=== PATIENT | female | born 2000 | race Caucasian/White ===

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

== ENCOUNTER 2024-10-24 10:46 | Inpatient (IN) ==
[2024-10-24] MEDS: LACTATED RINGER'S 1,000 ML IV PRN ×2 (13:40→19:53)
[2024-10-24] MEDS: ACETAMINOPHEN 325 MG TAB PO PRN (13:49)
--- NOTE | 2024-10-24 14:36 | History & Physical Report ---
Date of Service October 24, 2024 Assessment & Plan (1) Uterine contractions during : Plan: Monitor the patient on L&D Check for any cervical change. History of Present Illness Chief Complaint: Intrauterine 40 weeks 1 day gestation Painful contractions. Primary Care Provider: NO PCP Patient is a 24-year-old 1 para 0 her general health is good. Has been followed in the office for care and delivery. has been well dated with a first trimester ultrasound. Her due date is 10/23/2024. She started having contractions 11 PM on 10/23/2024 they continued throughout the night she had was unable to sleep she called the answering service about 9 AM today and stated she was having regular contractions was told to come into the office for evaluation once she got to the hospital she was placed on the monitor monitor strip was excellent heart rate had good tmbd-pn-soea variability there was spontaneous accelerations. Contractions were somewhat sporadic sometimes spaced as much is 4 to 5 minutes. However when she did get 1 she was rating them at about a 7 or 8 on a pain scale. Pelvic exam on admission revealed cervix to be 4 cm 100% effaced posterior vertex presentation at about a -120 station. Allergies Allergy/AdvReac Type Severity Reaction Status Date / Time No Known Allergies Allergy Verified 11/12/19 10:12 Home Medications Medication Instructions Recorded Confirmed Type vit #[id number]-GI-dha 1 tab PO DAILY 07/01/24 10/24/24 History Past Med/Surg History Problem List (Updated 10/24/24 @ 14:36 by Geoffrey Conley MD) Uterine contractions during Pain of round ligament affecting , antepartum Bilateral groin pain Encounter for pre-operative examination No known health problems Medical History Allergic rhinitis Anxiety Surgical History H/O knee surgery Social History Smoking Status: Never smoker Second Hand Exposure: No; Do You Dip or Chew Tobacco: No; Hx Alcohol Use: No Hx Substance Use: No Preferred Language: Moldovan Communication Ability: Effective Lokie Driver Required: No Beliefs That Will Affect Care: None marital status: Single Current Living Situation: Significant Other Other Information That Helps Us Care for You: No Feels Safe at Home: Yes Safety Concerns: Feels Safe At This Time Assistive Devices: None Physical Exam Physical Exam: Patient dane appeared to be well-developed well well-nourished 24-year-old white female alert oriented x 3 cooperative in a moderate amount of distress. Heart had a regular rhythm S1 and S2 are normal. Lungs are clear to auscultation and percussion trachea was midline there was no cervical adenopathy. There was no CVA tenderness. There was no abdominal tenderness. Nominal size was consistent with a term size fetus. There was no calf tenderness. Pelvic exam revealed the cervix to be 4 cm posterior 100% effaced vertex presentation at about a 0 to -1 station. Results & Data Results & Data Vital Signs (Past 12 Hours) Vital Signs Temp Pulse Resp BP 10/24/24 13:45 18 10/24/24 13:45 18 10/24/24 13:15 18 10/24/24 13:15 18 10/24/24 12:45 18 10/24/24 12:45 18 10/24/24 11:23 18 10/24/24 11:23 18 10/24/24 11:12 36.8 C 20 10/24/24 11:02 75 119/68 Diagnostic Findings Reactive NST
[2024-10-24] MEDS ORDERED: ACETAMINOPHEN 325 MG TAB PO PRN (17:46)
[2024-10-24] MEDS ORDERED: LIDOCAINE 1% LOCAL 20 ML VIAL INFIL PRN (18:41)
--- NOTE | 2024-10-24 18:44 | Labor Progress Brief Note ---
Date of Service October 24, 2024 Physical Exam Genitourinary: Manual OB Exam: + cervical dilation 4 cm and 5 cm, + cervical effacement 90% and + station -2 OB Exam Monitor Tracing: + external FHT monitor used, + external uterine monitor used, + category I and + normal FHT variability will admit in labor and fluid load for epidural Results & Data Vital Signs (Past 12 Hours) Vital Signs Temp Pulse Resp BP Pulse Ox 10/24/24 18:40 81 97 10/24/24 18:35 76 97 10/24/24 17:45 18 10/24/24 17:45 18 10/24/24 16:32 36.9 C 10/24/24 16:00 71 119/56 L 10/24/24 15:06 18 10/24/24 15:06 18 10/24/24 14:45 16 10/24/24 14:45 16 10/24/24 13:45 18 10/24/24 13:45 18 10/24/24 13:15 18 10/24/24 13:15 18 10/24/24 12:45 18 10/24/24 12:45 18 10/24/24 11:23 18 10/24/24 11:23 18 10/24/24 11:12 36.8 C 20 10/24/24 11:02 75 119/68
[2024-10-24 19:17] LABS: Hematocrit (blood only) 33.4 % (37.0-47.0); Hemoglobin 11.1 g/dl (12.0-16.0); Mean Corpuscular Hemoglobin 29.8 pg (25.0-34.0); Mean Corpuscular Hgb Conc 33.2 g/dL (32.0-36.0); Mean Corpuscular Volume 89.5 fL (80.0-100.0); Mean Platelet Volume 9.7 fL (9.4-12.4); Platelet Count 176 K/uL (130-400); RDW Coefficient of Variation 13.8 % (11.5-14.5); Red Blood Count 3.73 M/uL (4.20-5.40)
[2024-10-24] MEDS: fentANYL 2 MCG/ML BUPIVacaine 0.125%-NSS 100ML BAG ONE (20:25)
[2024-10-24] MEDS: fentaNYL citrate PF 100 MCG/2 ML VIAL ONE (20:27)
[2024-10-24] MEDS: SODIUM CHLORIDE 0.9% PF INJ 10 ML VIAL ONE (20:27)
[2024-10-24] MEDS: BUPIVACAINE 0.25% PF 30 ML VIAL ONE (20:27)
[2024-10-24] MEDS: ePHEDrine sulfate 50 MG/ML AMP ONE (20:28)
[2024-10-24] MEDS: LIDOCAINE 2%/EPINEPHRINE 1:200,000 20 ML PF ONE (20:28)
--- NOTE | 2024-10-24 20:43 | Anesthesiology Consultation ---
Date of Service October 24, 2024 Assessment & Plan Chart Review Chart Review: Acceptable Risk for Labor Epidural Consults Requested none History Height/Weight Height: 5 ft 3 in Weight: 69.853 kg Allergies Allergy/AdvReac Type Severity Reaction Status Date / Time No Known Allergies Allergy Verified 11/12/19 10:12 Medications Home Medications Medication Instructions Recorded Confirmed Last Taken vit #29-[id number]-JU-dha 1 tab PO DAILY 07/01/24 10/24/24 10/23/24 Active Medications Generic Name Dose Route Start Last Admin Trade Name Freq PRN Reason Stop Dose Admin Lactated Ringer's 1,000 mls @ 125 mls/hr 10/24/24 13:37 10/24/24 18:37 Lr IV 10/27/24 13:36 999 mls/hr .Q8H PRN Administration L&D Protocol Protocol Lactated Ringer's 1,000 mls @ 125 mls/hr 10/24/24 18:41 10/24/24 19:53 Lr IV 10/26/24 18:40 125 mls/hr .Q8H PRN Administration L&D Protocol Protocol Past Medical History Medical History Allergic rhinitis Anxiety Past Surgical History Surgical History H/O knee surgery Social History Smoking Status: Never smoker Do You Dip or Chew Tobacco: No Hx Alcohol Use: No Hx Substance Use: No substance use type: does not use Physical Exam Vital Signs Last Vital Signs Temp 36.7 C 10/24/24 19:09 Pulse 75 10/24/24 20:41 Resp 18 10/24/24 18:45 BP 97/55 L 10/24/24 20:41 Pulse Ox 97 10/24/24 20:37 Testing Laboratory Results 10/24/24 19:03
[2024-10-24] MEDS ORDERED: NALOXONE HCL 1 MG in SODIUM CHLORIDE 0.9% 1,000 ML IV PRN (20:44)
[2024-10-24] MEDS ORDERED: BUPIVACAINE 0.25% PF 30 ML VIAL EPI PRN (20:44)
[2024-10-24] MEDS ORDERED: LIDOCAINE 2% MPF LOCAL 5 ML VIAL EPI PRN (20:44)
[2024-10-24] MEDS ORDERED: ROPIVACAINE 0.5% PF 5 MG/ML 20 ML VIAL EPI PRN (20:44)
[2024-10-24] MEDS ORDERED: NALBUPHINE HCL INJ 10 MG/ML AMP IV PRN (20:44)
[2024-10-24] MEDS ORDERED: NALOXONE HCL 0.4 MG/1 ML VIAL/CARP IV PRN (20:44)
[2024-10-24] MEDS ORDERED: SODIUM CHLORIDE 0.9% PF INJ 10 ML VIAL EPI PRN (20:44)
[2024-10-24] MEDS ORDERED: diphenhydrAMINE 50 MG/ML VIAL IV PRN (20:44)
[2024-10-24] MEDS: ePHEDrine sulfate 50 MG/ML AMP IV PRN (21:40)
--- NOTE | 2024-10-24 22:07 | Labor Progress Brief Note ---
Date of Service October 24, 2024 Assessment & Plan Admission and Anticipated Discharge Date Admission Date: October 24, 2024 Physical Exam Genitourinary: Manual OB Exam: + cervical dilation 6 cm, + cervical effacement 90%, + station (AROM with Amni-hook clear fluid) -1 and + amniotic fluid clear OB Exam Monitor Tracing: + external FHT monitor used, + external uterine monitor used, + category I and + normal FHT variability Results & Data Vital Signs (Past 12 Hours) Vital Signs Temp Pulse Resp BP Pulse Ox 10/24/24 22:04 64 113/54 L 10/24/24 22:02 81 97/54 L 97 10/24/24 22:00 63 99/57 L 10/24/24 21:58 65 103/56 L 10/24/24 21:57 65 97 10/24/24 21:56 65 99/56 L 10/24/24 21:54 63 100/55 L 10/24/24 21:52 66 104/57 L 97 10/24/24 21:50 66 105/56 L 10/24/24 21:48 65 103/56 L 10/24/24 21:47 67 97 10/24/24 21:46 67 100/58 L 10/24/24 21:44 57 L 108/61 10/24/24 21:42 95 10/24/24 21:42 78 10/24/24 21:42 62 97/54 L 10/24/24 21:37 69 96 10/24/24 21:36 73 92/50 L 10/24/24 21:32 68 95 10/24/24 21:27 66 97 10/24/24 21:22 60 96 10/24/24 21:18 59 L 116/52 L 10/24/24 21:17 73 96 10/24/24 21:12 69 95 10/24/24 21:11 83 108/69 10/24/24 21:07 73 95 10/24/24 21:06 72 109/61 10/24/24 21:02 81 97 10/24/24 21:01 71 107/61 10/24/24 20:57 71 96 10/24/24 20:55 71 99/58 L 10/24/24 20:54 74 81 L 10/24/24 20:53 73 96/55 L 10/24/24 20:52 60 97 10/24/24 20:51 68 99/57 L 10/24/24 20:49 74 98/52 L 10/24/24 20:47 96 10/24/24 20:47 69 10/24/24 20:47 73 107/57 L 10/24/24 20:45 67 101/57 L 10/24/24 20:43 67 99/53 L 10/24/24 20:42 70 96 10/24/24 20:41 75 97/55 L 10/24/24 20:39 69 102/55 L 10/24/24 20:37 72 113/58 L 97 10/24/24 20:35 62 108/58 L 10/24/24 20:33 69 108/58 L 10/24/24 20:32 73 97 10/24/24 20:31 67 107/58 L 10/24/24 20:29 76 108/59 L 10/24/24 20:27 87 102/57 L 96 10/24/24 20:25 80 108/61 10/24/24 20:23 76 106/62 10/24/24 20:22 75 96 10/24/24 20:21 72 111/63 10/24/24 20:19 68 113/61 10/24/24 20:17 71 113/65 96 10/24/24 20:15 86 111/63 10/24/24 20:13 69 112/64 10/24/24 20:12 78 95 10/24/24 20:11 76 120/77 10/24/24 20:10 86 129/75 10/24/24 20:08 92 H 86 L 10/24/24 20:07 86 94 10/24/24 20:04 87 124/75 10/24/24 20:02 90 95 10/24/24 19:58 79 108/66 10/24/24 19:57 73 96 10/24/24 19:52 70 94 10/24/24 19:49 78 94 10/24/24 19:47 75 97 10/24/24 19:42 72 96 10/24/24 19:39 74 99/69 L 10/24/24 19:37 79 96 10/24/24 19:32 75 97 10/24/24 19:20 73 98 10/24/24 19:17 73 93 10/24/24 19:15 79 98 10/24/24 19:10 76 98 10/24/24 19:09 36.7 C 75 112/69 10/24/24 19:05 74 97 10/24/24 19:00 72 98 10/24/24 18:55 74 97 10/24/24 18:50 73 97 10/24/24 18:45 74 18 98 10/24/24 18:40 81 97 10/24/24 18:35 76 97 10/24/24 18:15 22 10/24/24 18:15 22 10/24/24 17:45 18 10/24/24 17:45 18 10/24/24 16:32 36.9 C 10/24/24 16:00 71 119/56 L 10/24/24 15:06 18 10/24/24 15:06 18 10/24/24 14:45 16 10/24/24 14:45 16 10/24/24 13:45 18 10/24/24 13:45 18 10/24/24 13:15 18 10/24/24 13:15 18 10/24/24 12:45 18 10/24/24 12:45 18 10/24/24 11:23 18 10/24/24 11:23 18 10/24/24 11:12 36.8 C 20 10/24/24 11:02 75 119/68
--- NOTE | 2024-10-25 02:03 | Labor Progress Brief Note ---
Date of Service October 25, 2024 Assessment & Plan Admission and Anticipated Discharge Date Admission Date: October 24, 2024 Physical Exam Genitourinary: Manual OB Exam: + cervical dilation 9 cm and 10 cm, + cervical effacement 100%, + station 0 and + amniotic fluid clear OB Exam Monitor Tracing: + external FHT monitor used, + external uterine monitor used, + category I and + normal FHT variability Results & Data Vital Signs (Past 12 Hours) Vital Signs Temp Pulse Resp BP Pulse Ox 10/25/24 01:59 77 104/57 L 10/25/24 01:57 74 96 10/25/24 01:52 73 97 10/25/24 01:47 113 H 96 10/25/24 01:43 93 H 102/60 10/25/24 01:42 77 96 10/25/24 01:37 76 96 10/25/24 01:32 87 95 10/25/24 01:29 107 H 104/55 L 10/25/24 01:27 81 96 10/25/24 01:22 82 93 10/25/24 01:17 91 H 97 10/25/24 01:14 75 99/53 L 10/25/24 01:12 88 98 10/25/24 01:07 82 95 10/25/24 01:02 77 96 10/25/24 00:57 85 100/59 L 96 10/25/24 00:52 71 96 10/25/24 00:47 68 96 10/25/24 00:44 65 98/51 L 10/25/24 00:42 69 96 10/25/24 00:37 73 95 10/25/24 00:32 71 94 10/25/24 00:29 64 97/53 L 10/25/24 00:27 63 95 10/25/24 00:22 67 96 10/25/24 00:17 77 96 10/25/24 00:14 64 101/53 L 10/25/24 00:12 68 96 10/25/24 00:07 64 96 10/25/24 00:05 36.7 C 10/25/24 00:02 70 98 10/24/24 23:57 72 109/55 L 96 10/24/24 23:52 71 96 10/24/24 23:47 77 96 10/24/24 23:43 73 104/55 L 10/24/24 23:42 67 96 10/24/24 23:37 71 96 10/24/24 23:32 72 95 10/24/24 23:28 70 109/56 L 10/24/24 23:27 69 95 10/24/24 23:22 69 95 10/24/24 23:17 69 94 10/24/24 23:13 65 107/55 L 10/24/24 23:12 64 95 10/24/24 23:07 64 94 10/24/24 23:02 66 96 10/24/24 22:58 64 105/56 L 10/24/24 22:57 64 96 10/24/24 22:52 68 95 10/24/24 22:47 67 97 10/24/24 22:43 80 102/59 L 10/24/24 22:42 72 96 10/24/24 22:37 67 95 10/24/24 22:32 70 97 10/24/24 22:30 64 104/59 L 10/24/24 22:27 72 97 10/24/24 22:22 66 97 10/24/24 22:17 70 97 10/24/24 22:12 97 10/24/24 22:12 69 10/24/24 22:12 71 105/57 L 10/24/24 22:10 71 98/58 L 10/24/24 22:08 72 101/56 L 10/24/24 22:07 69 96 10/24/24 22:06 79 102/54 L 87 L 10/24/24 22:04 64 113/54 L 10/24/24 22:02 81 97/54 L 97 10/24/24 22:00 63 99/57 L 10/24/24 21:58 65 103/56 L 10/24/24 21:57 65 97 10/24/24 21:56 65 99/56 L 10/24/24 21:54 63 100/55 L 10/24/24 21:52 66 104/57 L 97 10/24/24 21:50 66 105/56 L 10/24/24 21:48 65 103/56 L 10/24/24 21:47 67 97 10/24/24 21:46 67 100/58 L 10/24/24 21:44 57 L 108/61 10/24/24 21:42 95 10/24/24 21:42 78 10/24/24 21:42 62 97/54 L 10/24/24 21:37 69 96 10/24/24 21:36 73 92/50 L 10/24/24 21:32 68 95 10/24/24 21:27 66 97 10/24/24 21:22 60 96 10/24/24 21:18 59 L 116/52 L 10/24/24 21:17 73 96 10/24/24 21:12 69 95 10/24/24 21:11 83 108/69 10/24/24 21:07 73 95 10/24/24 21:06 72 109/61 10/24/24 21:02 81 97 10/24/24 21:01 71 107/61 10/24/24 20:57 71 96 10/24/24 20:55 71 99/58 L 10/24/24 20:54 74 81 L 10/24/24 20:53 73 96/55 L 10/24/24 20:52 60 97 10/24/24 20:51 68 99/57 L 10/24/24 20:49 74 98/52 L 10/24/24 20:47 96 10/24/24 20:47 69 10/24/24 20:47 73 107/57 L 10/24/24 20:45 67 101/57 L 10/24/24 20:43 67 99/53 L 10/24/24 20:42 70 96 10/24/24 20:41 75 97/55 L 10/24/24 20:39 69 102/55 L 10/24/24 20:37 72 113/58 L 97 10/24/24 20:35 62 108/58 L 10/24/24 20:33 69 108/58 L 10/24/24 20:32 73 97 10/24/24 20:31 67 107/58 L 10/24/24 20:29 76 108/59 L 10/24/24 20:27 87 102/57 L 96 10/24/24 20:25 80 108/61 10/24/24 20:23 76 106/62 10/24/24 20:22 75 96 10/24/24 20:21 72 111/63 10/24/24 20:19 68 113/61 10/24/24 20:17 71 113/65 96 10/24/24 20:15 86 111/63 10/24/24 20:13 69 112/64 10/24/24 20:12 78 95 10/24/24 20:11 76 120/77 10/24/24 20:10 86 129/75 10/24/24 20:08 92 H 86 L 10/24/24 20:07 86 94 10/24/24 20:04 87 124/75 10/24/24 20:02 90 95 10/24/24 19:58 79 108/66 10/24/24 19:57 73 96 10/24/24 19:52 70 94 10/24/24 19:49 78 94 10/24/24 19:47 75 97 10/24/24 19:42 72 96 10/24/24 19:39 74 99/69 L 10/24/24 19:37 79 96 10/24/24 19:32 75 97 10/24/24 19:20 73 98 10/24/24 19:17 73 93 10/24/24 19:15 79 98 10/24/24 19:10 76 98 10/24/24 19:09 36.7 C 75 112/69 10/24/24 19:05 74 97 10/24/24 19:00 72 98 10/24/24 18:55 74 97 10/24/24 18:50 73 97 10/24/24 18:45 74 18 98 10/24/24 18:40 81 97 10/24/24 18:35 76 97 10/24/24 18:15 22 10/24/24 18:15 22 10/24/24 17:45 18 10/24/24 17:45 18 10/24/24 16:32 36.9 C 10/24/24 16:00 71 119/56 L 10/24/24 15:06 18 10/24/24 15:06 18 10/24/24 14:45 16 10/24/24 14:45 16
[2024-10-25] MEDS: ONDANSETRON INJ 2 MG/ML 2 ML VIAL IV PRN (02:29)
[2024-10-25] MEDS: fentANYL 2 MCG/ML BUPIVacaine 0.125%-NSS 100ML BAG EPI PRN (04:30)
[2024-10-25] MEDS: fentaNYL citrate PF 100 MCG/2 ML VIAL EPI PRN (05:25)
--- NOTE | 2024-10-25 05:27 | Anesthesia Procedure Note ---
Date of Service October 25, 2024 Anesthesia Epidural Re-Dose Vital Signs Temp Pulse Resp BP Pulse Ox 36.8 C 85 18 107/58 L 97 10/25/24 03:52 10/25/24 05:25 10/24/24 18:45 10/25/24 05:10/25/24 05:22 Notes Pain Intensity: 4 Dilatation (cm): 9.5 Effacement (%): 100 Called by nursing to evaluate epidural as the patient is having increased pain. The epidural was re-dosed with the following medications (all medications via epidural route) after negative aspiration of the epidural catheter for CSF/HEME. 2% lidocaine 5ml with fentanyl 100mcg. After Epidural Re-Dose Mental Status: alert / awake / arousable Pain: improving with treatment Airway Patency, RR, SpO2: stable & adequate BP & HR: stable & adequate
[2024-10-25] MEDS: OXYTOCIN 30 UNITS/NSS 30 UNITS/500 ML BAG IV PRN (07:45)
[2024-10-25] MEDS ORDERED: ACETAMINOPHEN 325 MG TAB PO PRN (08:24)
[2024-10-25] MEDS ORDERED: OXYTOCIN 30 UNITS/NSS 30 UNITS/500 ML BAG IV PRN (08:24)
[2024-10-25] MEDS ORDERED: HYDROCORTISONE ACETATE 25 MG SUPP PR PRN (08:24)
[2024-10-25] MEDS ORDERED: bisacodyL 10 MG SUPP PR PRN (08:24)
--- NOTE | 2024-10-25 08:30 | Delivery Summary ---
Vaginal Delivery Summary Date of Service October 25, 2024 Vaginal Delivery Summary live female SIERRA over intact perineum with delayed cord clamping. Apgars 8/9 weight 8 lbs. 13 oz. Placenta delivered spontaneously and intact. Several small vaginal bleeders in vagina along with an arterial pumper on right side wall were repaired with 3/0 Vicryl suture. QBL 1237 ml. Final sponge, needle and instrument count are correct. Mo and baby stable.
[2024-10-25] MEDS: BUPIVACAINE 0.25% PF 30 ML VIAL EPI STA (08:50)
[2024-10-25] MEDS: SODIUM CHLORIDE 0.9% PF INJ 10 ML VIAL EPI STA (08:51)
[2024-10-25] MEDS: DIPHTHER/TETAN/PERTUS Vaccine (Tdap, Adol/Adult) 0.5mL IM ONE (08:51)
[2024-10-25] MEDS: LIDOCAINE 2%/EPINEPHRINE 1:200,000 20 ML PF EPI STA (08:51)
[2024-10-25] MEDS: fentaNYL citrate PF 100 MCG/2 ML VIAL EPI STA (08:51)
[2024-10-25] MEDS: IBUPROFEN 600 MG TAB PO PRN (09:14)
--- NOTE | 2024-10-25 10:14 | Anesthesia Procedure Note ---
Date of Service October 25, 2024 Anesthesia Post Epidural Note Vital Signs Vital Signs: Temp Pulse Resp BP Pulse Ox 37.0 C 82 18 102/58 L 95 10/25/24 07:01 10/25/24 10:12 10/25/24 09:43 10/25/24 10:12 10/25/24 07:57 Pain Intensity Abdomen: Pain Intensity: 4 Notes Mental Status: alert / awake / arousable and participated in evaluation Nausea / Vomiting: adequately controlled Pain: adequately controlled Airway Patency, RR, SpO2: stable & adequate BP & HR: stable & adequate Hydration State: stable & adequate Neuraxial Anesthesia: was administered and sensory block resolved Anesthetic Complications: no major complications apparent and Pt Satisfied with anesthetic care Epidural: Removed without complications and With tip intact
[2024-10-25] MEDS: LACTATED RINGER'S 1,000 ML IV ONE (10:36)
[2024-10-25] MEDS: BENZOCAINE 20% SPRY 85 APPLN/85 GM CAN EXT PRN (13:40)
[2024-10-25 14:27] LABS: Hemoglobin 8.5 g/dl (12.0-16.0); Mean Corpuscular Hemoglobin 30.7 pg (25.0-34.0); Mean Corpuscular Volume 90.3 fL (80.0-100.0); Mean Platelet Volume 9.7 fL (9.4-12.4); Platelet Count 156 K/uL (130-400); RDW Coefficient of Variation 13.8 % (11.5-14.5); RDW Standard Deviation 45.5 fL (36.4-46.3); Red Blood Count 2.77 M/uL (4.20-5.40)
[2024-10-25] MEDS: DOCUSATE SODIUM 100 MG CAP PO SCH (21:35)
[2024-10-26 06:10] LABS: Hematocrit (blood only) 27.1 % (37.0-47.0); Hemoglobin 9.1 g/dl (12.0-16.0); Mean Corpuscular Hemoglobin 30.8 pg (25.0-34.0); Mean Corpuscular Hgb Conc 33.6 g/dL (32.0-36.0); Mean Corpuscular Volume 91.9 fL (80.0-100.0); Mean Platelet Volume 10.1 fL (9.4-12.4); Platelet Count 171 K/uL (130-400); RDW Coefficient of Variation 13.7 % (11.5-14.5); RDW Standard Deviation 45.7 fL (36.4-46.3); Red Blood Count 2.95 M/uL (4.20-5.40); White Blood Count 17.31 K/ul (4.8-10.8)
[2024-10-26] MEDS: FERROUS SULFATE 325 MG TAB PO SCH (08:36)
[2024-10-26] MEDS: PRENATAL VITAMIN 1 TAB PO SCH (08:36)
--- NOTE | 2024-10-26 10:20 | Obstetrical Progress Note ---
Date of Service October 26, 2024 Assessment & Plan (1) Normal course: Post day #2 Vaginal delivery Pt doing well No complaints Stable vitals Stable labs. H/H:9.1/27.1 Tolerating PO food and med Pt wishes to be discharged home Results & Data Vital Signs (Past 12 Hours) Vital Signs Temp Pulse Resp BP Pulse Ox O2 Del Method 10/26/24 07:55 36.9 C 74 16 99/63 L 99 Room Air 10/26/24 07:20 36.7 C 76 18 90/48 L 98 Room Air 10/26/24 03:25 36.7 C 88 18 93/60 L 98 Room Air 10/25/24 23:25 36.9 C 84 16 91/53 L 98 Room Air
[2024-10-26] MEDS: bisacodyL 5 MG TABEC PO SCH (20:23)
[2024-10-27 01:09] VITALS: RESP 16
[2024-10-27 06:38] LABS: Hematocrit (blood only) 26.6 % (37.0-47.0); Hemoglobin 8.9 g/dl (12.0-16.0)
[2024-10-27 07:50] VITALS: BP 107/66; PULSE 74; TEMP 98.1; O2SAT 99
--- NOTE | 2024-10-27 11:49 | Obstetrical Progress Note ---
Date of Service October 27, 2024 Assessment & Plan Admission and Anticipated Discharge Date Admission Date: October 24, 2024 Subjective abdomen soft and non tender no calf tenderness ambulating well vaginal bleeding scant hgb 8.9 Results & Data Vital Signs (Past 12 Hours) Vital Signs Temp Pulse Resp BP Pulse Ox O2 Del Method 10/27/24 07:15 36.7 C 74 16 107/66 99 Room Air
== END 2024-10-27 14:40 | disposition home or self-care (01) | DRG 807 ==
LOC: OPB 10:46 → 4S1 10:51 → 4E2 10-25 12:53